=== PATIENT | female | born 1980 | race Caucasian/White ===

== ENCOUNTER → 2019-09-26 11:35 | Outpatient (BNVA) | payer OTHER, SELFPAY | PROVIDERS: Family Provider Nurse Practitioner Family; PCP Nurse Practitioner Family; Visit Provider Nurse Practitioner Family | DX: L70.0 Acne vulgaris (principal) | CPT/HCPCS: 80053; 85025 ==

== ENCOUNTER → 2022-08-24 14:02 | Outpatient (BNVA) | payer OTHER, SELFPAY | PROVIDERS: Family Provider Nurse Practitioner Family; PCP Nurse Practitioner Family; Visit Provider Nurse Practitioner Family | DX: I10 Essential (primary) hypertension (principal); N30.90 Cystitis, unspecified without hematuria | CPT/HCPCS: 81000 ==

== ENCOUNTER 2022-09-22 06:19 | Day surgery (SDC) | payer OTHER, SELFPAY ==
[2022-09-20 09:34] VITALS: BMI 25.0
[2022-09-22] MEDS: sodium chloride 0.9% 1,000 ML 30 ML IV (06:52)
--- NOTE | 2022-09-22 06:55 | W.PM.OPSUD ---
Surgery/Procedure H&P Update DATE OF PROCEDURE: September 22, 2022 DATE H&P PERFORMED: 09/06/22 H&P UPDATE INFORMATION: I have reviewed H&P completed within last 30 days, I have examined patient prior to procedure and No changes to prior documentation PLANNED PROCEDURE: Operation Date: 09/22/22 08:00 Proposed Procedures p 28466 colon w/possible hemorrhoid K62.5(Not Applicable) - DO gisele Frank Hemorrhoidectomy(Not Applicable) - Hardeep Haider DO
--- NOTE | 2022-09-22 07:12 | ANES.PREANE2 ---
Pre-Anesthetic Assessment Height/Weight: Height 1.57 m Weight 62.142 kg Operation Date: 09/22/22 08:00 Proposed Procedures p 48525 colon w/possible hemorrhoid K62.5(Not Applicable) - Hardeep Haider DO s Hemorrhoidectomy(Not Applicable) - Hardeep Haider DO Familial anesthetic complications: NOne Was Beta Yehuda taken within 24 hours: N/A Was Clonidine taken within 24 hours: N/A Last intake: Intake Last Liquid Date 09/21/22 Last Liquid Time 22:00 Last Solid Date 09/20/22 Last Solid Time 19:00 Social No alcohol and No tobacco Exam alert, oriented x 3, clear to auscultation bilaterally and regular rate & rhythm Airway Mallampati: Class I Dentition: full CV/HEM Hypertension Anesthetic Plan ASA status: 2 Anesthesia: MAC Risk of > 500 ml blood loss (7ml/kg in children): No Medications/Allergies Home Medications Medication Instructions Recorded Confirmed Last Taken Type scopolamine base 1 mg over 3 days 1 patch transdermal Q3D PRN nausea 07/22/22 09/22/22 1 Month Ago Rx transdermal patch (Transderm-Scop) and vomiting #10 ea ~08/25/22 lisinopril 2.5 mg tablet 2.5 mg PO DAILY #90 tabs 08/24/22 09/22/22 3 Weeks Ago Rx ~09/01/22 amitriptyline 50 mg tablet 50 mg PO BID 09/21/22 09/22/22 09/21/22 History Allergies Allergy/AdvReac Type Severity Reaction Status Date / Time No Known Allergies Allergy Verified 09/06/22 09:03 Current Medications Generic Name Dose Route Start Last Admin Trade Name Freq PRN Reason Stop Dose Admin Sodium Chloride 1,000 mls @ 30 mls/hr 09/22/22 06:45 09/22/22 06:52 Sodium Chloride 0.9% IV 09/23/22 06:44 30 mls/hr .Q24H DWAYNE Administration PFSH Anesthesia Medical History Anxiety with depression Patient has history of anxiety with depression. She has failed on several medications. Cystic acne vulgaris Rhus dermatitis Sea sickness Patient goes on cruises at least annually and scopolamine for sea sickness works well for her. Vaginal yeast infection Surgical History Status post hysterectomy Social History (Updated 09/06/22 @ 09:10 by MINA Willis) Smoking and tobacco status: current every day smoker Quit status (tobacco): has quit using tobacco Second hand smoke exposure: No Smoking risk assessment/counseling performed?: No Alcohol intake: never Desire information about alcohol rehabilitation?: No Counseling given: No Desire information about substance/drug rehabilitation?: No Counseling given: No Data Anesthesia Cardiac Studies: No Data to Display
[2022-09-22 08:45] VITALS: BP 110/80; PULSE 90; RESP 12; TEMP 36.6; O2SAT 100
[2022-09-22 08:57] VITALS: BP 119/80; PULSE 95; RESP 18; O2SAT 96
--- NOTE | 2022-09-22 14:05 | ANE.PACU2 ---
Inpatient post-anesthesia follow up: Airway intact: Yes Vital signs: Temperature 97.9 F Pulse Rate 95 Respiratory Rate 18 Blood Pressure 119/80 Pulse Oximetry 96 Oxygen Delivery Me thod Room Air Oxygen Flow Rate Fraction of Inspir ed Oxygen Hydration adequate: Yes Nausea and vomiting: Yes Pain level: 1 Mental status: Baseline
== END 2022-09-22 09:17 | disposition home or self-care (01) ==
PROVIDERS: PCP Nurse Practitioner Family; Visit Provider Surgery
PROC: 0DJD8ZZ Inspection of Lower Intestinal Tract, Via Natural or Artificial Opening Endoscopic (ICD-10-PCS; CPT 45378; principal; 2022-09-22 08:00)
DX: K64.8 Other hemorrhoids (principal); I10 Essential (primary) hypertension; F17.200 Nicotine dependence, unspecified, uncomplicated
CPT/HCPCS: 45378; J2704; J7030

== ENCOUNTER 2022-10-31 09:23 | Day surgery (SDC) | payer OTHER, SELFPAY ==
[2022-10-28 12:41] VITALS: BMI 24.1
[2022-10-31] VITALS (11 sets, daily range): BP systolic 100–122; BP diastolic 64–82; PULSE 76–104; RESP 15–18; TEMP 36.1–36.4; O2SAT 93–100
[2022-10-31] MEDS: sodium chloride 0.9% 1,000 ML 30 ML IV (09:57)
[2022-10-31] MEDS: scopolamine 1.5 Patch 1 PATCH TRANSDERMA (09:58)
--- NOTE | 2022-10-31 10:00 | W.PM.OPSUD ---
Surgery/Procedure H&P Update DATE OF PROCEDURE: October 31, 2022 DATE H&P PERFORMED: 10/12/92 H&P UPDATE INFORMATION: I have reviewed H&P completed within last 30 days, I have examined patient prior to procedure and No changes to prior documentation PREOP DIAGNOSIS: hemorrhoids PLANNED PROCEDURE: Operation Date: 10/31/22 11:10 Proposed Procedures p Hemorrhoidectomy 80157,K64.9(Not Applicable) - Hardeep Haider DO
[2022-10-31] MEDS: ceFAZolin 2,000 MG in sodium chloride 0.9% (plus) 50 ML 100 MG IV (10:15)
--- NOTE | 2022-10-31 10:32 | ANES.PREANE2 ---
Pre-Anesthetic Assessment Height/Weight: Height 1.57 m Weight 59.874 kg Temp Pulse Resp BP Pulse Ox O2 Del Method 97.4 F L 91 16 100/75 100 Room Air 10/31/22 09:50 10/31/22 09:50 10/31/22 09:50 10/31/22 09:50 10/31/22 09:50 10/31/22 09:50 Preop Diagnosis: hemorrhoids Operation Date: 10/31/22 11:10 Proposed Procedures p Hemorrhoidectomy 65207,K64.9(Not Applicable) - Hardeep Haider DO Familial anesthetic complications: none Was Beta Yehuda taken within 24 hours: N/A Was Clonidine taken within 24 hours: N/A Last intake: Intake Last Liquid Date 10/30/22 Last Liquid Time 22:00 Last Solid Date 10/29/22 Last Solid Time 18:30 Last Intake: 22:00 Social Tobacco (1ppd) 20 pack years Exam alert, oriented x 3, clear to auscultation bilaterally and regular rate & rhythm Airway Submandibular: within normal limits Cervical ROM: within normal limits Mallampati: Class I Dentition: full Pulmonary None reported CV/HEM Hypertension None reported Hepatic None reported GI None reported Metabolic None reported Musc/skel None reported Neuropsych None reported Anesthetic Plan ASA status: 2 Anesthesia: General Risk of > 500 ml blood loss (7ml/kg in children): No Medications/Allergies Home Medications Medication Instructions Recorded Confirmed Last Taken Type scopolamine base 1 mg over 3 days 1 patch transdermal Q3D PRN nausea 07/22/22 10/28/22 1 Month Ago Rx transdermal patch (Transderm-Scop) and vomiting #10 ea ~08/25/22 amitriptyline 50 mg tablet 50 mg PO BID 09/21/22 10/31/22 10/30/22 History ondansetron 4 mg disintegrating 4 mg PO Q8H PRN nausea and 09/29/22 10/31/22 2 Days Ago Rx tablet vomiting #30 tabs ~10/29/22 triamcinolone acetonide 0.1 % 1 applic topical BID #80 grams 10/04/22 10/31/22 10/30/22 Rx topical cream docusate sodium 100 mg capsule 100 mg PO BID #20 caps 10/31/22 Unknown Rx (Colace) hydrocodone 10 mg-acetaminophen 1 tab PO Q6H PRN pain #28 tabs 10/31/22 Unknown Rx 325 mg tablet Allergies Allergy/AdvReac Type Severity Reaction Status Date / Time No Known Allergies Allergy Verified 10/28/22 12:39 Current Medications Generic Name Dose Route Start Last Admin Trade Name Freq PRN Reason Stop Dose Admin Sodium Chloride 1,000 mls @ 30 mls/hr 10/31/22 09:30 10/31/22 09:57 Sodium Chloride 0.9% IV 11/01/22 09:29 30 mls/hr .Q24H DWAYNE Administration PFSH Anesthesia Medical History Anxiety with depression Patient has history of anxiety with depression. She has failed on several medications. Cystic acne vulgaris Rhus dermatitis Sea sickness Patient goes on cruises at least annually and scopolamine for sea sickness works well for her. Vaginal yeast infection Surgical History Status post hysterectomy Social History Smoking and tobacco status: current every day smoker Quit status (tobacco): has quit using tobacco Second hand smoke exposure: No Smoking risk assessment/counseling performed?: No Alcohol intake: never Desire information about alcohol rehabilitation?: No Counseling given: No Desire information about substance/drug rehabilitation?: No Counseling given: No Data Anesthesia Cardiac Studies: No Data to Display
[2022-10-31] MEDS: thrombin 5,000 unit SDV 5000 UNIT XX (10:50)
--- NOTE | 2022-10-31 11:16 | PM.OP ---
Operative Report Date of procedure: October 31, 2022 Pre-op diagnosis: Preop Diagnosis hemorrhoids Post-op diagnosis: same Procedure done: Hemorrhoidectomy Implants: Thrombin-soaked Gelfoam Specimens removed/disposition: Hemorrhoids Surgeon: Dr. Hardeep Haider DO Anesthesia: Epidural Estimated blood loss (mL): 5 Complications: None apparent Brief History: This is a very pleasant 41-year-old female who was found to have large internal and external hemorrhoids on colonoscopy. Anusol was tried but she did not get acceptable results. She desires hemorrhoidectomy. She repeatedly asked for excision of all 3 pillars. The risk and benefits were explained and documented. Procedure: Patient was well in the operative room and general endotracheal ovation was achieved by the department anesthesia. She was then placed into the prone jackknife position. The anus was inspected prepped and draped in usual sterile fashion. A timeout was performed. All present were in agreement. Retractor was used to examine the anus and she had sizable hemorrhoids at all 3 pillars. The largest pillar was the right posterior. All 3 pillars were taken in the same manner. The exterior most edge of the hemorrhoid was slightly ligated with electrocautery. The harmonic scalpel was then used to excise all 3 hemorrhoidal pillars. The right anterior pillar was the smallest and minimal excision was done at this location to reduce risk of anal stenosis. There was minimal bleeding. Thrombin-soaked Gelfoam was then placed into the anus. Sterile bandage was applied. Patient tolerated procedure well.
[2022-10-31] MEDS: ondansetron 2 mg/ML SDV 2 mL 4 MG IVP (11:47)
--- NOTE | 2022-10-31 15:08 | ANE.PACU2 ---
Inpatient post-anesthesia follow up: Airway intact: Yes Vital signs: Temperature 97.0 F Pulse Rate 86 Respiratory Rate 16 Blood Pressure 106/81 Pulse Oximetry 99 Oxygen Delivery Me thod Room Air Oxygen Flow Rate 6 Fraction of Inspir ed Oxygen Hydration adequate: Yes Nausea and vomiting: No Pain level: 3 Mental status: Baseline
== END 2022-10-31 12:35 | disposition home or self-care (01) ==
PROVIDERS: PCP Nurse Practitioner Family; Visit Provider Surgery
PROC: (CPT 46260; principal; 2022-10-31 11:00)
DX: K64.9 Unspecified hemorrhoids (principal); F17.200 Nicotine dependence, unspecified, uncomplicated; I10 Essential (primary) hypertension
CPT/HCPCS: 46260; 88304; C9290; J0690; J1100; J2405; J2704; J2710; J3010; J3490; J7030

== ENCOUNTER → 2023-08-18 08:18 | Outpatient (BNVA) | payer OTHER, SELFPAY | PROVIDERS: PCP Nurse Practitioner Family; Visit Provider Nurse Practitioner Family | DX: I10 Essential (primary) hypertension (principal); Z51.81 Encounter for therapeutic drug level monitoring; Z79.899 Other long term (current) drug therapy | CPT/HCPCS: 80053; 80061; 85025 ==

== ENCOUNTER → 2023-12-17 11:15 | Outpatient (BNVA) | payer OTHER, SELFPAY | PROVIDERS: PCP Nurse Practitioner Family; Visit Provider Nurse Practitioner | DX: J02.9 Acute pharyngitis, unspecified (principal); J06.9 Acute upper respiratory infection, unspecified | CPT/HCPCS: 87880 ==

== ENCOUNTER → 2024-07-18 09:23 | Outpatient (BNVA) | payer OTHER, SELFPAY | PROVIDERS: PCP Nurse Practitioner Family; Visit Provider Nurse Practitioner Family | DX: E78.2 Mixed hyperlipidemia (principal); F41.8 Other specified anxiety disorders; I10 Essential (primary) hypertension; L70.9 Acne, unspecified; E55.9 Vitamin D deficiency, unspecified | CPT/HCPCS: 80053; 80061; 81003; 82306; 83036; 84439; 84443; 85025 ==

== ENCOUNTER 2024-10-31 07:29 | Outpatient (CLI) | payer OTHER, SELFPAY ==
--- NOTE | 2024-10-31 07:45 | US_ITS ---
WS: [id number] RIGHT UPPER QUADRANT ULTRASOUND HISTORY: K81.9 - Cholecystitis, unspecified COMPARISON: None available. Liver: 14.6 cm in length. Normal size liver with mild coarse echogenicity. No mass or intrahepatic duct dilatation. Portal Vein: Normal hepatopetal flow with monophasic waveform. Gallbladder: Abnormal gallbladder. On a few of the images submitted there is shadowing from the anterior gallbladder wall. This may represent air or calcification in the gallbladder wall. There does appear to be some sludge present. Thick sludge which actually moves with patient positioning. No pericho lecystic fluid. CBD: 0.4 cm Pancreas: Not visualized. Right kidney: 10.8 cm in length. Normal size and echogenicity. No hydronephrosis or mass. Aorta and IVC: Unremarkable abdominal aorta and IVC. No ascites. US/US gall bladder 22452 IMPRESSION: 1. Abnormal gallbladder. On a few of the images there is shadowing from the an terior gallbladder wall. This may be due to calcification in the wall or air. T here is also thick sludge within the gallbladder. Recommend follow-up CT abdome n with IV contrast to better evaluate the gallbladder for possible air. No Murp hy's sign. 2. Common bile duct is normal size. 3. Mild hepatic steatosis.
== END 2024-10-31 07:30 | disposition home or self-care (01) ==
PROVIDERS: PCP Nurse Practitioner Family; Visit Provider Nurse Practitioner Family
DX: K81.9 Cholecystitis, unspecified (principal); R93.3 Abnormal findings on diagnostic imaging of other parts of digestive tract; K76.0 Fatty (change of) liver, not elsewhere classified
CPT/HCPCS: 76705

== ENCOUNTER 2024-11-13 12:22 | Observation (INO) | payer OTHER, SELFPAY ==
[2024-11-13] VITALS (22 sets, daily range): BP systolic 110–140; BP diastolic 65–83; PULSE 95–109; RESP 9–22; TEMP 36.1–36.7; O2SAT 91–98; BMI 26.3
--- NOTE | 2024-11-13 09:24 | W.PM.OPSUD ---
Surgery/Procedure H&P Update DATE OF PROCEDURE: November 13, 2024 DATE H&P PERFORMED: 11/07/24 H&P UPDATE INFORMATION: I have reviewed H&P completed within last 30 days, I have examined patient prior to procedure and No changes to prior documentation PLANNED PROCEDURE: Operation Date: 11/13/24 10:45 Proposed Procedures p Laparoscopic Cholecystectomy 30276 K82.9(Not Applicable) - Seng Carter MD
[2024-11-13] MEDS: sodium chloride 0.9% 1,000 ML 30 ML IV (09:45)
[2024-11-13] MEDS: ceFAZolin 2,000 mg SDV 2000 MG IVP (10:03)
--- NOTE | 2024-11-13 10:21 | P.ANESASSM_ITS ---
Pre-Anesthetic Assessment Height/Weight: Height 1.57 m Weight 65.317 kg Temp Pulse Resp BP Pulse Ox O2 Del Method 97 F L 95 18 110/71 97 Room Air 11/13/24 09:26 11/13/24 09:26 11/13/24 09:26 11/13/24 09:26 11/13/24 09:26 11/13/24 09:29 Operation Date: 11/13/24 10:45 Proposed Procedures p Laparoscopic Cholecystectomy 56691 K82.9(Not Applicable) - Seng Carter MD Familial anesthetic complications: none Was Beta Yehuda taken within 24 hours: N/A Was Clonidine taken within 24 hours: N/A Last intake: Intake Last Liquid Date 11/12/24 Last Liquid Time 22:00 Last Solid Date 11/12/24 Last Solid Time 18:00 Social No alcohol and No tobacco Exam alert, oriented x 3 and clear to auscultation bilaterally Airway Mallampati: Class I Dentition: full History/ROS No significant history except as noted Pulmonary None reported CV/HEM Hypertension None reported Hepatic None reported GI Gastroesophageal Reflux Disease (rare, related to diet;) right upper quadrant pain Metabolic None reported Musc/skel None reported Neuropsych None reported Anesthetic Plan ASA status: 2 Anesthesia: Anesthesia Evaluation and General Risk of > 500 ml blood loss (7ml/kg in children): No Medications/Allergies Home Medications ?Medication ?Instructions ?Recorded ?Confirmed ?Last Taken ?Type cetirizine 10 mg capsule (All Day 10 mg PO DAILY PRN n nancy drainage 12/17/23 11/12/24 Unknown Rx Allergy (cetirizine)) #30 caps celecoxib 50 mg capsule See Rx Instructions .Route 1 08/03/23 11/12/24 11/12/24 Rx .COMPLEX #180 caps norethindrone 0.5 mg-ethinyl 1 tab PO DAILY #84 tabs 1 08/03/23 11/12/24 11/12/24 Rx estradiol 35 mcg tablet (Nortrel) tretinoin 0.025 % topical cream 1 applic topical Q7D 1 08/03/23 11/12/24 Unknown History scopolamine base 1 mg over 3 days 1 patch transdermal Q3D PRN nausea 08/07/24 11/12/24 Unknown Rx transdermal patch (Transderm-Scop) and vomiting #10 ea amitriptyline 50 mg tablet See Rx Instructions .Route 10/05/24 11/12/24 11/12/24 Rx .COMPLEX #180 tabs losartan 25 mg tablet 25 mg PO DAILY 30 days #30 t abs 10/16/24 11/12/24 11/12/24 Rx ondansetron 4 mg disintegrating 4 mg PO Q8H PRN nausea and 10/22/24 11/12/24 11/12/24 Rx tablet vomiting #30 tabs sertraline 25 mg tablet See Rx Instructions .Route 0 11/11/24 11/12/24 11/12/24 Rx .COMPLEX #30 tabs Allergies Allergy/AdvReac Type Severity Reaction Status Date / Time plecanatide (From NOSTROMO ICT) Allergy diarrhea Verified 11/12/24 14:04 Current Medications Generic Name Dose Route Start Last Admin Trade Name Freq PRN Reason Stop Dose Admin Sodium Chloride 1,000 mls @ 30 mls/hr 11/13/24 09:15 11/13/24 09:45 Sodium Chloride 0.9% IV 11/14/24 09:14 30 mls/hr .Q24H DWAYNE Administration PFSH Anesthesia Medical History Abdominal pain Abnormal CT scan, gallbladder Abnormal US (ultrasound) of abdomen Thickening of wall of gallbladder Cholecystitis Foodborne gastroenteritis Sea sickness Patient goes on cruises at least annually and scopolamine for sea sickness works well for her. Vitamin D deficiency Acne Rhus dermatitis Vaginal yeast infection Cystic acne vulgaris Anxiety with depression Patient has history of anxiety with depression. She has failed on several medications. Surgical History (Updated 11/07/24 @ 10:[address]) Status post hysterectomy Social History Smoking and tobacco/nicotine status: former use of tobacco/nicotine Quit status (tobacco/nicotine): has quit using Second hand smoke exposure: No Alcohol intake: never Substance/Drug Use: unknown
[2024-11-13] MEDS: lidocaine-epi 1% 20 mL INJ 10 ML INJECTION (10:57)
--- NOTE | 2024-11-13 12:01 | PM.OP ---
Operative Report Date of procedure: November 13, 2024 Pre-op diagnosis: Chronic cholecystitis Post-op diagnosis: same Post-op findings: Gallbladder with inflammatory rind. Full of stones. Procedure done: Laparoscopic cholecystectomy converted to open cholecystectomy Implants: N/A Specimens removed/disposition: Gallbladder sent to pathology Pathology: Gallbladder sent to pathology Surgeon: Seng Carter MD Organization Development Consultant: N/A Anesthesia: General Estimated blood loss (mL): 50 Complications: N/A Findings: Gallbladder with inflammatory rind. Full of stones. Difficult dissection and therefore converted to open cholecystectomy. Condition: stable Disposition: observation Brief History: 43-year-old female who presented with chronic cholecystitis. Discussed risk and benefits and patient agreed to proceed with laparoscopic cholecystectomy possible open. Difficult dissection due to inflammatory changes and contracted gallbladder. Converted to open cholecystectomy. Procedure: I discussed the risks and benefits of laparoscopic cholecystectomy possible open, and obtained consent prior to proceeding to the operating room. SCDs were utilized. Prophylactic antibiotics were administered. General anesthesia was induced. The patient was placed supine, and was prepped and draped in the usual sterile fashion. Insufflation to 15mmHg was achieved using a Veress needle at Shoemaker's point. A 12mm optiview trocar was placed at the umbilicus under direct visualization. The left upper quadrant was inspected, and no injuries were noted. Two 5mm ports were placed in the right upper quadrant, and a 12mm working port was placed in the epigastrium. The gallbladder was then retracted cephalad through the lateral RUQ port, and the infundibulum grabbed through the medial RUQ port and retracted laterally. The gallbladder was inflammed and had a thick inflammatory rind. It was also contracted and was filled with stones. All of this was consistent with the diagnosis of chronic cholecystitis. I proceeded to score the peritoneum over the medial aspect of the gallbladder using a laparoscopic hook with electrocautery. Then the infundibulum was retracted medially in order to score the peritoneum over the lateral aspect of the galbladder. Using a combination of energy and blunt dissection with the [place] and a Kittner dissector, the cystic artery was fully dissected. The cystic duct was partially dissected, however, I was unable to create a window behind the cystic duct due to the inflammatory changes. At this point I elected to convert to an open cholecystectomy. I created a 7cm incision incorporating the right upper quadrant working ports. I used electrocautery to dissect down to the posterior fascial layer. I entered the peritoneal cavity with scissors. I then proceeded to inspect the gallbladder fossa. I started dissecting the gallbladder using electrocautery from a top down approach. I managed to dissect down to the infundibulum. The inflammatory rind made further dissection difficult, and therefore I elected to open the gallbladder. The gallbladder was decompressed and stones removed. The cystic artery was clipped three times leaving two clips in the proximal aspect. The cystic artery was then transected. At this point I deemed it safest to transect the gallbladder at the infundibulum using the laparoscopic stapler with a blue load. The gallbladder was sento to pathology. I irrigated the abdomen with 2L of normal saline. I did not find any bile leaks and confirmed adequate hemostasis. I then proceeded to close the incision. Two fascial layers were closed separately using 0 lopped PDS. Deep dermal layer was closed using running 3-0 vicryl. Skin was closed using 4-0 monocryl and surgical glue. The port sites were closed using 4-0 monocryl and glue. Local infiltration to the incisions was done using 20cc of 1% lidocaine 0.5% bupivacaine with epinephrine. The patient woke up from anesthesia without any complications.
[2024-11-13] MEDS: fentaNYL 50 mcg/mL INJ 2mL IVP ×2 (12:42→12:49)
[2024-11-13] MEDS: HYDROmorphone 1 mg/mL INJ 1ml 0.5 MG IVP (12:57)
--- NOTE | 2024-11-13 13:08 | PC.NURSE ---
1307 - AMBROSE Mandel notified of pt tearful and stating no pain relief
--- NOTE | 2024-11-13 13:35 | ANE.PACU2 ---
Inpatient post-anesthesia follow up: Airway intact: Yes Vital signs: Temperature 97.8 F Pulse Rate 99 Respiratory Rate 18 Blood Pressure 119/73 Pulse Oximetry 91 Oxygen Delivery Me thod Room Air Oxygen Flow Rate Fraction of Inspir ed Oxygen Hydration adequate: Yes Nausea and vomiting: No Pain level: 3 Mental status: Baseline
--- NOTE | 2024-11-13 13:49 | PC.NURSE ---
1333 - Ok'd with anesthesia prior to taking pt to floor
--- NOTE | 2024-11-13 13:50 | PC.NURSE ---
1340 - accepted into room [id number] with Tabatha RN at side - S and alvarez saldivar c/d/i upon this nurse exiting care - updated per this nurse
[2024-11-13] MEDS: ketorolac 30 mg/mL INJ IVP (14:10)
[2024-11-13] MEDS: ondansetron 2 mg/ML SDV 2 mL 4 MG IVP (14:10)
[2024-11-13] MEDS: oxyCODONE-APAP 5-325 mg Tablet 1 TAB PO ×2 (15:02→16:59)
[2024-11-13] MEDS: acetaminophen 1,000 MG/100 ML PIGGYBACK 400 MG IV (17:00)
--- NOTE | 2024-11-13 17:13 | P.DS_ITS ---
Discharge Providers Date of Admission: 11/13/24 12:22 Date of Discharge: November 13, 2024 Attending Provider at Admission: Seng Carter MD Attending Provider at Discharge: Seng Carter MD Primary Care Provider: SARANYA More Reason for Visit Reason for Visit: K82.9 Hospital Course Hospital Course 43-year-old female who underwent open cholecystectomy for chronic cholecystitis. Patient was however 24 hours observation, however, she feels her pain is tolerable at home. She is cleared for discharge from the floor. Physical Exam Narrative: Chest: Unlabored breathing room air. No lymphadenopathy. Heart: Regular rate and rhythm. Abdomen: Soft, appropriately tender, nondistended. Dressings clean dry intact Discharge Data Studies Completed and Pending Pending at discharge Category Date Time Status Pathology: Surgical [PTH] Routine Pth 11/13/24 11:55 Received Vitals Last Vital Signs Temp 98.0 F 11/13/24 14:45 Pulse 99 11/13/24 14:45 Resp 17 11/13/24 16:59 BP 131/81 11/13/24 14:45 Pulse Ox 97 11/13/24 14:45 O2 Del Method Room Air 11/13/24 14:45 Discharge Plan Discharge Patient Disposition: Home Condition: Stable Prescriptions: New oxycodone 5 mg tablet 5 mg PO Q6H PRN (Reason: pain) 10 Days Qty: 30 0RF Continued celecoxib 50 mg capsule See Rx Instructions .ROUTE .COMPLEX Qty: 180 2RF Dose Instruction: Take 1 capsule by mouth twice daily Rx Instructions: Take 1 capsule by mouth twice daily Nortrel 0.5/35 (28) 0.5-35 mg-mcg tablet 1 tab PO DAILY Qty: 84 2RF tretinoin 0.025 % cream 1 applic topical Q7D ondansetron 4 mg tablet,disintegrating 4 mg PO Q8H PRN (Reason: nausea and vomiting) Qty: 30 0RF All Day Allergy (cetirizine) 10 mg capsule 10 mg PO DAILY PRN (Reason: nasal drainage) Qty: 30 0RF scopolamine base [Transderm-Scop] 1 mg over 3 days patch 3 day 1 patch transdermal Q3D PRN (Reason: nausea and vomiting) Qty: 10 0RF losartan 25 mg tablet 25 mg PO DAILY 30 Days Qty: 30 2RF amitriptyline 50 mg tablet See Rx Instructions .ROUTE .COMPLEX Qty: 180 1RF Dose Instruction: Take 1 tablet by mouth twice daily Rx Instructions: Take 1 tablet by mouth twice daily sertraline 25 mg tablet See Rx Instructions .ROUTE .COMPLEX Qty: 30 0RF Dose Instruction: TAKE 1 TABLET BY MOUTH EVERY 24 HOURS Rx Instructions: TAKE 1 TABLET BY MOUTH EVERY 24 HOURS Discharge Orders: Discharge Order (Routine); Ordered 11/13/24 Ordered By: Seng Carter Referrals: Seng Carter MD [Physician, General Surgery] - 2 weeks Referral Note: We have notified your physician's clinic of the need for a follow-up appointment to be scheduled. If you have not heard from them within the next 2 business days, please call them directly. ROMELIA Marcos, FOOD SERVICE KITCHEN SUPERVISOR [Primary Care Provider, Family Practice] Referral Note: We have notified your physician's clinic of the need for a follow-up appointment to be scheduled. If you have not heard from them within the next 2 business days, please call them directly. Discharge Diet: Usual diet Discharge Activity: Limit activity as instructed Patient Instructions: Oxycodone, Rapid Release (By mouth), Acute Wound Care (DC), Open Cholecystectomy (GEN), Opioid Safety, Post Anesthesia Care Activity Restrictions/Additional Instructions: 1. Ok to remove dressings in 24 hrs. You will have surgical glue that will stay on until your follow up appointment. 2. No lifting greater than 10 lbs for 6 weeks. 3. No dietary restrictions 4. No bathtubs for 2 weeks. Ok for showers. 5. You may add OTC ibuprofen 400mg every 6 hours and tylenol 650 mg every 8 hours for 5 days for pain control. In addition to the oxycodone. Do not drive if taking narcotics. 6. Follow up in clinic in 2 weeks. Call the office if you hace any questions. Discharge Attestations Time Spent in Discharge Care*: greater than 30 min Quality Metrics Clinical Quality Measures [ No reported AMI, CVA or VTE this stay] Coding Level of Care Code Acute Code for Chg Fwd
--- NOTE | 2024-11-13 17:13 | PM.PN ---
Subjective Subjective: Pain under control Patient wishes to be discharged. Dressings clean dry intact Vitals/I&O/Wt Last Vital Signs Temp 98.0 F 11/13/24 14:45 Pulse 99 11/13/24 14:45 Resp 17 11/13/24 16:59 BP 131/81 11/13/24 14:45 Pulse Ox 97 11/13/24 14:45 O2 Del Method Room Air 11/13/24 14:45 11/13/24 11/13/24 11/13/24 06:59 14:59 22:59 Intake Total 1250 / 1250 Output Total Balance 1220 / 1220 Weight last 48 hrs Weight 144 lb Weight 144 lb Physical Exam Narrative: Chest: Unlabored breathing room air. No lymphadenopathy. Heart: Regular rate and rhythm. Abdomen: Soft, appropriately tender, nondistended. Dressings clean dry intact A&P Assessment and plan (1) Cholecystitis: Plan 43-year-old female status post open cholecystectomy for cholecystitis. Offered patient 24-hour obs. Patient wishes to be discharged. She thinks her pain is tolerable at home. PDMP PDMP Reviewed: Last Reviewed 11/13/24 18:17 EDT by Seng Carter MD Attestations Medical Necessity Statement*: N/A Coding Level of Care Code 91034 Diagnoses Cholecystitis K81.9
== END 2024-11-13 18:00 | disposition home or self-care (01) ==
LOC: MEDSURG 12:22
PROVIDERS: Admitting Provider Student in an Organized Health Care Education/Training Program; PCP Nurse Practitioner Family; Visit Provider Student in an Organized Health Care Education/Training Program
PROC: 0FT44ZZ Resection of Gallbladder, Percutaneous Endoscopic Approach (ICD-10-PCS; CPT 47562; principal; 2024-11-13 10:45)
PROC: 0FT40ZZ Resection of Gallbladder, Open Approach (ICD-10-PCS; CPT 47600; 2024-11-13 10:45)
DX: K80.10 Calculus of gallbladder with chronic cholecystitis without obstruction (principal); I10 Essential (primary) hypertension; E55.9 Vitamin D deficiency, unspecified; Z87.891 Personal history of nicotine dependence; Z53.31 Laparoscopic surgical procedure converted to open procedure
CPT/HCPCS: 47600; 88304; G0378; J0131; J0690; J1100; J1171; J1200; J1885; J2250; J2405; J2704; J3010; J3490; J7030; J9999

== ENCOUNTER 2024-12-24 07:42 | Day surgery (SDC) | payer OTHER, SELFPAY ==
[2024-12-24 07:50] VITALS: BP 118/72; PULSE 94; RESP 18; TEMP 36.4; O2SAT 97; BMI 25.7
[2024-12-24] MEDS: sodium chloride 0.9% 1,000 ML 15 ML IV (08:08)
--- NOTE | 2024-12-24 08:25 | ANES.PREANE2 ---
Pre-Anesthetic Assessment Height/Weight: Height 1.57 m Weight 63.957 kg Temp Pulse Resp BP Pulse Ox O2 Del Method 97.5 F L 94 18 118/72 97 Room Air 12/24/24 07:50 12/24/24 07:50 12/24/24 07:50 12/24/24 07:50 12/24/24 07:50 12/24/24 07:50 Operation Date: 12/24/24 09:00 Proposed Procedures p EGD 18177 R10.11(Not Applicable) - Sneg Carter MD Familial anesthetic complications: PONV - especially when fasting, patient has zofran in her bags Was Beta Yehuda taken within 24 hours: N/A Was Clonidine taken within 24 hours: N/A Last intake: Intake Last Liquid Date 12/23/24 Last Solid Date 12/23/24 Last Solid Time 18:30 Social No alcohol and No tobacco Exam alert, oriented x 3, clear to auscultation bilaterally and regular rate & rhythm Airway Mallampati: Class I Dentition: full CV/HEM Hypertension Anesthetic Plan ASA status: 2 Anesthesia: MAC Risk of > 500 ml blood loss (7ml/kg in children): No Medications/Allergies Home Medications ?Medication ?Instructions ?Recorded ?Confirmed ?Last Taken ?Type tretinoin 0.025 % topical cream 1 applic topical Q7D 06/03/24 12/20/24 12/23/24 18:30 History scopolamine base 1 mg over 3 days 1 patch transdermal Q3D PRN nausea 08/07/24 12/20/24 12/23/24 18:30 Rx transdermal patch (Transderm-Scop) and vomiting #10 ea losartan 25 mg tablet 25 mg PO DAILY 30 days #30 tabs 10/16/24 12/20/24 12/23/24 18:30 Rx ondansetron 4 mg disintegrating 4 mg PO Q8H PRN nausea and 10/22/24 12/20/24 12/23/24 18:30 Rx tablet vomiting #30 tabs hydrocodone 10 mg-acetaminophen 1 tab PO Q8H PRN pain, severe 5 12/02/24 12/20/24 12/24/24 06:00 Rx 325 mg tablet days #14 tabs pantoprazole 40 mg tablet,delayed 40 mg PO BID 30 days #60 tabs 12/12/24 12/20/2425 18:30 Rx release (Protonix) sucralfate 100 mg/mL oral 10 ml PO BID 30 days #840 mL 12/12/24 12/20/24 12/23/24 18:30 Rx suspension cephalexin 500 mg capsule 500 mg PO Q8H 7 days #21 caps 12/18/24 12/19/24 12/23/24 18:30 Rx amitriptyline 50 mg tablet 50 mg PO BID 12/19/24 12/20/24 12/23/24 18:30 History celecoxib 50 mg capsule 50 mg PO BID 12/19/24 12/20/24 12/23/24 18:30 History cyanocobalamin (vitamin B-12) 5,000 mcg sublingual DAILY 12/19/24 12/20/24 12/23/24 18:30 History 5,000 mcg sublingual tablet (Vitamin B-12) magnesium oxide 400 mg PO DAILY 12/19/24 12/20/24 12/23/24 18:30 History norethindrone 0.5 mg-ethinyl 1 tab PO DAILY 12/19/24 12/20/24 12/23/24 18:30 History estradiol 35 mcg tablet (Nortrel) pyridoxine (vitamin B6) 250 mg 250 mg PO DAILY 12/19/24 12/20/24 12/23/24 18:30 History tablet (Vitamin B-6) sertraline 25 mg tablet 25 mg PO DAILY 12/19/24 12/20/24 12/23/24 18:30 History turmeric 400 mg capsule 400 mg PO BID 12/19/24 12/20/24 12/23/24 18:30 History zinc 50 mg tablet 50 mg PO DAILY 12/19/24 12/20/24 12/23/24 18:30 History Allergies Allergy/AdvReac Type Severity Reaction Status Date / Time plecanatide (From [facility] - [place]) Allergy diarrhea Verified 12/20/24 14:40 Current Medications Generic Name Dose Route Start Last Admin Trade Name Freq PRN Reason Stop Dose Admin Sodium Chloride 1,000 mls @ 15 mls/hr 12/24/24 07:43 12/24/24 08:08 Sodium Chloride 0.9% IV 12/25/24 07:42 15 mls/hr .Q24H PRN Administration COLONOSCOPY FLUIDS PFSH Anesthesia Medical History (Updated 12/20/24 @ 15:12 by SARANYA Marie) Ingrown left greater toenail Cellulitis of great toe of left foot Infection of toe Abdominal pain Abnormal CT scan, gallbladder Abnormal US (ultrasound) of abdomen Thickening of wall of gallbladder Cholecystitis Foodborne gastroenteritis Sea sickness Patient goes on cruises at least annually and scopolamine for sea sickness works well for her. Vitamin D deficiency Acne Rhus dermatitis Vaginal yeast infection Cystic acne vulgaris Anxiety with depression Patient has history of anxiety with depression. She has failed on several medications. Surgical History Status post hysterectomy Social History Smoking and tobacco/nicotine status: former use of tobacco/nicotine Quit status (tobacco/nicotine): has quit using Second hand smoke exposure: No Alcohol intake: never Substance/Drug Use: unknown
--- NOTE | 2024-12-24 09:09 | W.PM.OPSUD ---
Surgery/Procedure H&P Update DATE OF PROCEDURE: December 24, 2024 DATE H&P PERFORMED: 12/12/24 H&P UPDATE INFORMATION: I have reviewed H&P completed within last 30 days, I have examined patient prior to procedure and No changes to prior documentation PLANNED PROCEDURE: Operation Date: 12/24/24 09:00 Proposed Procedures p EGD 68157 R10.11(Not Applicable) - Seng Carter MD
[2024-12-24 09:37] VITALS: BP 106/72; PULSE 80; RESP 18; TEMP 36.5; O2SAT 96
[2024-12-24 09:46] VITALS: BP 112/78; PULSE 90; RESP 18; TEMP 36.6; O2SAT 99
--- NOTE | 2024-12-24 10:05 | ANE.PACU2 ---
Inpatient post-anesthesia follow up: Airway intact: Yes Vital signs: Temperature 97.8 F Pulse Rate 90 Respiratory Rate 18 Blood Pressure 112/78 Pulse Oximetry 99 Oxygen Delivery Me thod Room Air Oxygen Flow Rate Fraction of Inspir ed Oxygen Hydration adequate: Yes Nausea and vomiting: No Pain level: 1 Mental status: Baseline
== END 2024-12-24 10:08 | disposition home or self-care (01) ==
PROVIDERS: PCP Nurse Practitioner Family; Visit Provider Student in an Organized Health Care Education/Training Program
PROC: 0DJ08ZZ Inspection of Upper Intestinal Tract, Via Natural or Artificial Opening Endoscopic (ICD-10-PCS; principal; 2024-12-24 09:00)
DX: K29.00 Acute gastritis without bleeding (principal); R12 Heartburn; I10 Essential (primary) hypertension; Z90.49 Acquired absence of other specified parts of digestive tract; Z79.899 Other long term (current) drug therapy; Z88.8 Allergy status to other drugs, medicaments and biological substances; Z90.710 Acquired absence of both cervix and uterus; Z87.891 Personal history of nicotine dependence
CPT/HCPCS: 43239; 88305; J2704; J7030

== ENCOUNTER 2025-05-16 10:16 | Outpatient (CLI) | payer OTHER, SELFPAY ==
--- NOTE | 2025-05-16 10:26 | CT_ITS ---
WS: [id number] CT ABDOMEN AND PELVIS WITH AND WITHOUT CONTRAST HISTORY: ABDOMINAL PAIN, RIGHT upper quadrant pain following cholecystectomy. TECHNIQUE: Unenhanced 5 mm axial imaging first performed through the abdomen. Post contrast imaging through the abdomen and pelvis. Oral contrast is not been provided. Sagittal and coronal reformats are submitted. All CT scans at [facility] use at least one of these dose optimization techniques: automated exposure control; mA and/or kV adjustment per patient size (includes targeted exams where dose is matched to clinical indication); or iterative reconstruction. CONTRAST: Omnipaque 350; 95 mL IV. DLP: 864.70 mGy.cm COMPARISON: Gallbladder ultrasound 10/31/2024 Lung bases are clear. Normal size heart. Small hiatal hernia. Normal size liver. Mild focal fatty sparing along the falciform ligament. There is a fluid collection in the expected location of the gallbladder fossa. By history patient had a prior cholecystectomy. This fluid collection measures 2.6 x 5.5 cm with low Hounsfield units. There is a 2 mm dense focus within this collection. There are adjacent surgical clips from the cholecystectomy. The common bile duct is normal size. Normal pancreas and spleen. No adrenal mass. No renal obstruction. Mild atherosclerosis aorta. No GI tract obstruction. There are a few foci of increased density in the GI tract which may be medicinal. There is fluid distention of the cecum. Prior hysterectomy. There is a fluid collection in the RIGHT pelvis measuring 3.4 x 4.1 cm. This is probably a small RIGHT ovarian cyst. No ascites or adenopathy. No destructive bone lesions. CT/CT abdomen pelvis wo/w [id number] IMPRESSION: 1. Patient is status post cholecystectomy. 2. Well-circumscribed fluid collection in the gallbladder fossa measures 2.6 x 5.5 cm. There are adjacent surgical clips. There is a tiny 2 mm calcific focus within this collection. No adjacent inflammation. No additional collections id entified. As the gallbladder has been removed surgically this may be a small re sidual biloma or seroma. This collection is contained at the gallbladder fossa. 3. There are a few high density foci within the GI tract which are probably me dicinal. 4. Well-circumscribed cyst in the RIGHT adnexa consistent with a small RIGHT o varian cyst. If the ovaries were removed this is probably a peritoneal inclusio n cyst. 5. Status post hysterectomy.
[2025-05-16] MEDS: iohexol 350 mg/mL 500 mL Btl (per mL) IV (10:52)
== END 2025-05-16 10:17 | disposition home or self-care (01) ==
LOC: RAD 10:17
PROVIDERS: PCP Nurse Practitioner Family; Visit Provider Student in an Organized Health Care Education/Training Program
DX: R10.9 Unspecified abdominal pain (principal); Z90.49 Acquired absence of other specified parts of digestive tract; I70.0 Atherosclerosis of aorta; N83.291 Other ovarian cyst, right side; R93.3 Abnormal findings on diagnostic imaging of other parts of digestive tract; Z90.710 Acquired absence of both cervix and uterus
CPT/HCPCS: 74178